=== PATIENT | female | born 1995 | race Caucasian/White ===

== ENCOUNTER 2017-01-07 19:16 | Emergency (ER) | payer BC ==
[2017-01-07] MEDS ORDERED: Lidocaine 1% MPF* 2 ML VIAL ONE (19:32)
[2017-01-07 19:38] VITALS: BP 125/53
--- NOTE | 2017-01-07 19:41 | UC ---
Skin Complaint HPI - HPI Summary HPI Summary: patient has an earring back stuck in the earlobe. the area is infected. has been in their for a few days - History of Current Complaint Time Seen by Provider: 01/07/17 19:21 Stated Complaint: EARRING BACK STUCK IN LEFT EARLOBE Hx Obtained From: Patient Hx Last Menstrual Period: 09/05/15 ?: No Onset/Duration: Sudden Onset, Lasting Days Skin Exposure Onset/Duration: Days Ago Timing: Constant Onset Severity: Moderate Current Severity: Severe Pain Intensity: 6 Pain Scale Used: 0-10 Numeric Location: Discrete, Ear (Left) Character: Swelling, Pruritus, Pain, Redness Aggravating: Touch Alleviating: Nothing Associated Signs & Symptoms: Positive: Drainage, Tenderness Related History: Other: - FB - Allergy/Home Medications Allergies/Adverse Reactions: Allergies Allergy/AdvReac Type Severity Reaction Status Date / Time Amoxicillin [From Augmentin] Allergy See Comment Verified 01/07/17 19:38 Clavulanic Acid Allergy See Comment Verified 01/07/17 19:38 [From Augmentin] Review of Systems Constitutional: Negative Skin: Other - FB in ear, Eyes: Negative ENT: Negative Respiratory: Negative Cardiovascular: Negative Gastrointestinal: Negative Genitourinary: Negative Motor: Negative Neurovascular: Negative Musculoskeletal: Negative Neurological: Negative Psychological: Negative All Other Systems Reviewed And Are Negative: Yes PMH/Surg Hx/FS Hx/Imm Hx Previously Healthy: Yes - Surgical History Surgical History: None Surgery Procedure, Year, and Place: denies - Family History Known Family History: Negative: Cardiac Disease, Hypertension - Social History Alcohol Use: None Substance Use Type: None Smoking Status (MU): Never Smoked Tobacco Physical Exam Triage Information Reviewed: Yes Appearance: Well-Appearing, Well-Nourished, Pain Distress Vital Signs Reviewed: Yes Eye Exam: Normal ENT: Positive: Normal ENT inspection, Hearing grossly normal, Pharynx normal, TMs normal Dental Exam: Normal Neck exam: Normal Neck: Positive: Supple, Nontender, No Lymphadenopathy Respiratory Exam: Normal Respiratory: Positive: Chest non-tender, Lungs clear, Normal breath sounds Cardiovascular Exam: Normal Cardiovascular: Positive: RRR, No Murmur, Pulses Normal, Brisk Capillary Refill Abdominal Exam: Normal Abdomen Description: Positive: Nontender, No Organomegaly, Soft Bowel Sounds: Positive: Present Musculoskeletal Exam: Normal Musculoskeletal: Positive: Strength Intact, ROM Intact, No Edema Neurological Exam: Normal Neurological: Positive: Alert, Muscle Tone Normal Psychological Exam: Normal Skin: Positive: Other - red earlobe, drainage from the peirceing, palpable earringback in center of ear lobe. Course/Dx - Course Course Of Treatment: hx obtained, exam performed, numbed left earlobe with 1% lidocaine, pulled earring back out through peircing withut difficulty. patient tolerated well. Abx prescribed. - Differential Diagnoses - Skin Complaint Differential Diagnoses: Abscess, Cellulitis, Foreign Body - Diagnoses Provider Diagnoses: FB in left earlobe, infected ear piercing Discharge - Discharge Plan Condition: Stable Disposition: HOME Patient Education Materials: Wound Infection (ED) Additional Instructions: take the medication as prescribed, keep the ear clean, and do not put earring in until healed.
== END 2017-01-07 20:03 | disposition home or self-care (01) ==
LOC: UCCORT 19:16
DX: S00.452A Superficial foreign body of left ear, initial encounter (principal); L08.9 Local infection of the skin and subcutaneous tissue, unspecified; X58.XXXA Exposure to other specified factors, initial encounter; Y93.9 Activity, unspecified; Y92.9 Unspecified place or not applicable; Z88.1 Allergy status to other antibiotic agents
CPT/HCPCS: 99212; G0463

== ENCOUNTER 2018-03-23 09:44 | Emergency (ER) | payer BC ==
--- NOTE | 2018-03-23 11:24 | RAD ---
Indication: Left breast pain. 2 views of the chest including dual energy PA views are reviewed. No mediastinal shift is noted. Heart is of normal size and configuration. Lung davis appear clear. There may be mild pectus excavatum deformity. IMPRESSION: No active cardiopulmonary disease is noted.
[2018-03-23 11:45] VITALS: BP 109/66
--- NOTE | 2018-03-23 11:48 | UC ---
Abdominal Pain Female HPI - HPI Summary HPI Summary: 22 yo WF c/o sudden left lower CP with inspiration, denies cough f/c/n/v/d or recent cold or GERD sx but takes OCPs - History of Current Complaint Chief Complaint: UCChestPain Stated Complaint: LEFT RIB PAIN Time Seen by Provider: 03/23/18 10:44 Hx Obtained From: Patient Hx Last Menstrual Period: control Onset/Duration: Sudden Onset Severity Initially: Moderate Severity Currently: Severe Pain Intensity: 8 Location: Discrete At: LUQ, Epigastric Radiates to: Other Character: Sharp Aggravating Factor(s): Movement Associated Signs and Symptoms: Positive: Negative Allergies/Adverse Reactions: Allergies Allergy/AdvReac Type Severity Reaction Status Date / Time amoxicillin [From Augmentin] Allergy Diarrhea Verified 03/23/18 10:23 clavulanic acid Allergy Diarrhea Verified 03/23/18 10:23 [From Augmentin] PMH/Surg Hx/FS Hx/Imm Hx Previously Healthy: Yes - Surgical History Surgical History: None Surgery Procedure, Year, and Place: denies - Family History Known Family History: Negative: Cardiac Disease, Hypertension - Social History Alcohol Use: None Substance Use Type: None Smoking Status (MU): Never Smoked Tobacco - Immunization History Most Recent Tetanus Shot: unknown Review of Systems Constitutional: Negative Skin: Negative Eyes: Negative ENT: Negative Respiratory: Negative Cardiovascular: Negative Gastrointestinal: Abdominal Pain Genitourinary: Negative Motor: Negative Neurovascular: Negative Musculoskeletal: Other: - left chest wall pain on inspiration Neurological: Negative Psychological: Negative All Other Systems Reviewed And Are Negative: Yes Physical Exam Triage Information Reviewed: Yes Appearance: Ill-Appearing, Pain Distress Vital Signs: Initial Vital Signs Temp 37.2 C 03/23/18 10:17 Pulse 94 03/23/18 10:17 Resp 16 03/23/18 10:17 BP 126/70 03/23/18 10:17 Pulse Ox 100 03/23/18 10:17 Eye Exam: Normal ENT Exam: Normal ENT: Positive: Normal ENT inspection Dental Exam: Normal Neck exam: Normal Neck: Positive: 1 Respiratory Exam: Normal Respiratory: Positive: Lungs clear. Negative: Chest non-tender, Crackles, Rhonchi, Stridor, Wheezing Cardiovascular Exam: Normal Abdominal Exam: Normal Abdomen Description: Positive: Nontender - epigastrium Musculoskeletal Exam: Normal, Other - NEG reproducible left lower rib pains on palpation Neurological Exam: Normal Psychological Exam: Normal Skin Exam: Normal Diagnostics - EKG Cardiac Rate: NL Cardiac Rhythm: Sinus: Normal Ectopy: None ST Segment: Normal Abd Pain Female Course/Dx - Course Course Of Treatment: CXR and EKG neg- advised to got to ER to r/o PE. Called and informed Ria Dawson in ED that pt is on her way - Differential Dx/Diagnosis Provider Diagnoses: left lower CP Discharge - Sign-Out/Discharge Documenting (check all that apply): Discharge/Admit/Transfer - Discharge Plan Condition: Stable Disposition: HOME Patient Education Materials: Chest Wall Pain (ED) Referrals: Non Staff,Doctor [Primary Care Provider] - Additional Instructions: go to ER [facility] to r/o PE (lung blood clot) - Billing Disposition and Condition Condition: STABLE Disposition: HOME
== END 2018-03-23 11:55 | disposition home or self-care (01) ==
LOC: UCCORT 09:44
DX: R07.9 Chest pain, unspecified (principal); Z88.0 Allergy status to penicillin; Z88.8 Allergy status to other drugs, medicaments and biological substances
CPT/HCPCS: 71046; 93005; 99212; G0463